=== PATIENT | female | born 2000 | race Caucasian/White ===

== ENCOUNTER 2019-05-31 06:29 | Emergency (ER) | payer BC ==
--- NOTE | 2019-05-31 07:09 | EDM.PDOC ---
ED HPI GENERAL MEDICAL PROBLEM - General Chief Complaint: Genitourinary Problem Stated Complaint: ABDOMINAL CRAMPING Time Seen by Provider: 05/31/19 07:07 - History of Present Illness INITIAL COMMENTS - FREE TEXT/NARRATIVE: 19-year-old female presents emergency room with blood in her urine. She also has some cramping with this. She woke up about 4:00 this morning with quite a bit of blood in her urine. She gets this on occasion she has a significant history of mast cell activation syndrome, and when this flares up she often gets UTI symptoms without an infection. When she has flares usually start herself on prednisone 40 mg daily for 4 days and she took 40 mg this morning when she noticed this. She wants to make sure she does not have a urinary tract infection. Patient has intermittent abdominal cramps and this is pretty normal for her has gastrointestinal symptoms predominantly with this condition. Yesterday the patient was on a diet holiday in this is probably what activated everything. Patient denies any fevers or chills she does not believe she is she is on control. Pelvic Pain Score (Numeric/FACES): 4 - Related Data Allergies Allergy/AdvReac Type Severity Reaction Status Date / Time Sulfa (Sulfonamide Allergy Rash Verified 05/31/19 06:37 Antibiotics) Home Meds: Home Meds Non-Formulary Medication [NF Drug] 1 dose PO DAILY 07/24/18 [History] predniSONE [Prednisone] 40 mg PO DAILY PRN 05/31/19 [History] Past Medical History Genitourinary History: Reports: UTI, Recurrent Musculoskeletal History: Reports: Other (See Below) Other Musculoskeletal History: tendinitis, joint hypermobility, Neurological History: Reports: Other (See Below) Other Neuro History: POTS - Past Surgical History HEENT Surgical History: Reports: Oral Surgery Musculoskeletal Surgical History: Reports: Other (See Below) Other Musculoskeletal Surgeries/Procedures:: scoliosis sx Social & Family History - Family History Family Medical History: Noncontributory - Tobacco Use Smoking Status *Q: Never Smoker - Caffeine Use Caffeine Use: Reports: None - Recreational Drug Use Recreational Drug Use: No ED ROS GENERAL - Review of Systems Review Of Systems: See Below Constitutional: Reports: No Symptoms HEENT: Reports: No Symptoms Respiratory: Reports: No Symptoms Cardiovascular: Reports: No Symptoms Endocrine: Reports: No Symptoms GI/Abdominal: Reports: Abdominal Pain, Diarrhea. Denies: Nausea, Vomiting : Reports: Frequency, Other (Hematuria) Skin: Reports: No Symptoms (She is prone to skin symptoms) Neurological: Reports: No Symptoms ED EXAM, GI/ABD - Physical Exam Exam: See Below Exam Limited By: No Limitations General Appearance: Alert, No Apparent Distress Eyes: Bilateral: Normal Appearance Head: Atraumatic, Normocephalic Neck: Normal Inspection, Supple, Non-Tender, Full Range of Motion Respiratory/Chest: No Respiratory Distress, Lungs Clear, Normal Breath Sounds Cardiovascular: Regular Rate, Rhythm, No Edema, No Murmur GI/Abdominal Exam: Normal Bowel Sounds, Soft, Other (He has minimal lower abdominal discomfort with palpation no rigidity rebound or guarding noted) Back Exam: No: CVA Tenderness (L), CVA Tenderness (R) Course - Vital Signs Last Recorded V/S: Last Vital Signs Temp 36.3 C 05/31/19 06:34 Pulse 108 H 05/31/19 06:34 Resp 18 05/31/19 06:34 BP 133/86 05/31/19 06:34 Pulse Ox 100 05/31/19 06:34 - Orders/Labs/Meds Orders: Active Orders 24 hr Category Date Time Status UA W/MICROSCOPIC [URIN] Stat Lab 05/31/19 07:22 Results Labs: Laboratory Tests 05/31/19 05/31/19 Range/Units 07:22 07:28 Urine Color [place] H (Yellow) Urine Appearance Slt cloudy H (Clear) Urine pH 6.0 (5.0-8.0) Ur Specific [place] 1.010 (1.005-1.030) Urine Protein 2+ H (Negative) Urine Glucose (UA) Negative (Negative) Urine Ketones Negative (Negative) Urine Occult Blood 3+ H (Negative) Urine Nitrite Negative (Negative) Urine Bilirubin Negative (Negative) Urine Urobilinogen 0.2 (0.2-1.0) Ur Leukocyte Esterase 2+ H (Negative) Urine HCG, Qual Negative (NEGATIVE) - Re-Assessments/Exams Free Text/Narrative Re-Assessment/Exam: 05/31/19 07:32 The patient's main concern is to be sure she doesn't have a urinary tract infection. I had a long discussion with her she really does not want laboratory evaluation done at this time other than a UA. 05/31/19 08:01 Patient is fairly insistent on going at this time she has another appointment to make. Urinalysis has 2+ leukocyte esterase but large amount of red cells microscopically still pending we will set up a culture and sensitivity as to what this looks like. Patient's been started on antibiotics multiple times and and as it turned out didn't really have urinary tract infection. So she like to hold off on antibiotics at this point Departure - Departure Time of Disposition: 08:02 Disposition: Home, Self-Care 01 Clinical Impression: Dysuria - Discharge Information Referrals: Corin Fung MD [Primary Care Provider] - Forms: ED Department Discharge Additional Instructions: Return to the emergency room with any questions problems worsening symptoms. We will await your urine culture and sensitivity before starting antibiotics - My Orders Last 24 Hours: My Active Orders 05/31/19 07:22 UA W/MICROSCOPIC [URIN] Stat - Assessment/Plan Last 24 Hours: My Active Orders 05/31/19 07:22 UA W/MICROSCOPIC [URIN] Stat
== END 2019-05-31 08:00 | disposition home or self-care (01) ==
LOC: JD.ED 06:29
DX: R30.0 Dysuria (principal); Z88.2 Allergy status to sulfonamides
CPT/HCPCS: 81001; 81025; 87086; 87088; 99281; 99284

== ENCOUNTER 2020-02-01 18:03 | Emergency (ER) | payer BC ==
[2020-02-01] MEDS ORDERED: Sodium Chloride 0.9% 10 ML Syringe FLUSH PRN ×2 (18:27→18:42)
[2020-02-01] MEDS ORDERED: Iopamidol 755 Mg/ML 100 ML Bottle IVPUSH ONE (18:42)
[2020-02-01] MEDS ORDERED: Sodium Chloride 0.9% 45 ML IV SCH (18:45)
[2020-02-01] MEDS ORDERED: Sodium Chloride 0.9% 1,000 ML IV SCH (18:45)
--- NOTE | 2020-02-01 19:03 | EDM.PDOC ---
ED HPI GENERAL MEDICAL PROBLEM - General Chief Complaint: Upper Extremity Injury/Pain Stated Complaint: R ARM PAIN Time Seen by Provider: 02/01/20 18:22 Source of Information: Reports: Patient History Limitations: Reports: No Limitations - History of Present Illness INITIAL COMMENTS - FREE TEXT/NARRATIVE: Patient is a 19-year-old female who presents to the emergency department with complaints of right medial forearm pain and swelling over the last few days. She also states she has had intermittent shortness of breath and a shooting pain in her right breast which seems to be worsening over the last 2 days. She does have asthma and has been attributing her shortness of breath to the asthma. She also has a history of mast cell activation syndrome as well as antiphospholipid syndrome. She has been receiving infusions of Benadryl, Pepcid, and normal saline for her mast cell activation syndrome with IV being placed in the antecubital of her right arm. She denies a history of blood clots and states that the clotting disorder was caught incidentally when she was having a work-up for her mast cell activation syndrome. She is currently taking Eliquis and Plavix to treat her hypercoagulable state as well as oral control pills for her endometriosis. Right Arm Pain Score (Numeric/FACES): 7 - Related Data Allergies Allergy/AdvReac Type Severity Reaction Status Date / Time alcohol Allergy Anaphylactic Verified 02/01/20 18:15 Shock D and C blue no.1 Allergy Hives Verified 02/01/20 18:15 D and C green no.5 Allergy Hives Verified 02/01/20 18:15 D and C orange no.4 Allergy Hives Verified 02/01/20 18:15 D and C red no.22 Allergy Hives Verified 02/01/20 18:15 D and C yellow no.10 Allergy Hives Verified 02/01/20 18:15 Sulfa (Sulfonamide Allergy Rash Verified 05/31/19 06:37 Antibiotics) Home Meds: Home Meds Non-Formulary Medication [NF Drug] 1 dose PO DAILY 07/24/18 [History] predniSONE [Prednisone] 40 mg PO DAILY PRN 05/31/19 [History] Past Medical History Respiratory History: Reports: Asthma Genitourinary History: Reports: UTI, Recurrent Musculoskeletal History: Reports: Other (See Below) Other Musculoskeletal History: tendinitis, joint hypermobility, Neurological History: Reports: Other (See Below) Other Neuro History: POTS - Past Surgical History HEENT Surgical History: Reports: Oral Surgery Musculoskeletal Surgical History: Reports: Other (See Below) Other Musculoskeletal Surgeries/Procedures:: scoliosis sx, spinal fusion Social & Family History - Family History Family Medical History: Noncontributory - Tobacco Use Smoking Status *Q: Never Smoker Second Hand Smoke Exposure: No - Caffeine Use Caffeine Use: Reports: None - Recreational Drug Use Recreational Drug Use: No Review of Systems - Review of Systems Review Of Systems: Comprehensive ROS is negative, except as noted in HPI. ED EXAM, GENERAL - Physical Exam Exam: See Below Exam Limited By: No Limitations General Appearance: Alert, WD/WN, No Apparent Distress Respiratory/Chest: No Respiratory Distress, Lungs Clear, Normal Breath Sounds, No Accessory Muscle Use, Chest Non-Tender Cardiovascular: Normal Peripheral Pulses, Regular Rate, Rhythm, No Edema, No Gallop, No JVD, No Murmur, No Rub Extremities: Normal Inspection, Normal Range of Motion, Non-Tender, No Pedal Edema, Normal Capillary Refill, Other (no redness, warmth, or edema present to right forearm) Neurological: Alert, Oriented, CN II-XII Intact, Normal Cognition, Normal Gait, Normal Reflexes, No Motor/Sensory Deficits Psychiatric: Normal Affect, Normal Mood Skin Exam: Warm, Dry, Intact, Normal Color, No Rash Course - Vital Signs Last Recorded V/S: Last Vital Signs Temp 98.4 F 02/01/20 18:10 Pulse 114 H 02/01/20 18:10 Resp 16 02/01/20 18:10 BP 113/85 02/01/20 18:10 Pulse Ox 100 02/01/20 18:10 - Orders/Labs/Meds Orders: Active Orders 24 hr Category Date Time Status Peripheral IV Care [RC] . DIRECTED Care 02/01/20 18:30 Active Peripheral IV Insertion Adult [OM.PC] Stat Oth 02/01/20 18:26 Ordered Labs: Laboratory Tests 02/01/20 02/01/20 02/01/20 Range/Units 18:40 18:40 18:40 WBC 5.97 (3.98-10.04) K/mm3 RBC 4.86 (3.98-5.22) M/mm3 Hgb 14.3 (11.2-15.7) gm/dl Hct 43.0 (34.1-44.9) % MCV 88.5 (79.4-94.8) fl MCH 29.4 (25.6-32.2) pg MCHC 33.3 (32.2-35.5) g/dl RDW Std Deviation 40.4 (36.4-46.3) fL Plt Count 224 (182-369) K/mm3 MPV 11.5 (9.4-12.3) fl Neut % (Auto) 47.9 (34.0-71.1) % Lymph % (Auto) 40.2 (19.3-51.7) % [place] % (Auto) 10.2 (4.7-12.5) % Eos % (Auto) 1.2 (0.7-5.8) Baso % (Auto) 0.3 (0.1-1.2) % Neut # (Auto) 2.86 (1.56-6.13) K/mm3 Lymph # (Auto) 2.40 (1.18-3.74) K/mm3 [place] # (Auto) 0.61 H (0.24-0.36) K/mm3 Eos # (Auto) 0.07 (0.04-0.36) K/mm3 Baso # (Auto) 0.02 (0.01-0.08) K/mm3 D-Dimer, Quantitative 0.46 (0.19-0.50) mg/L Sodium 142 (136-145) mEq/L Potassium 3.3 L (3.5-5.1) mEq/L Chloride 105 (98-107) mEq/L Carbon Dioxide 26 (21-32) mEq/L Anion Gap 14.3 (5-15) BUN 7 (7-18) mg/dL Creatinine 0.9 (0.55-1.02) mg/dL Est Cr Clr Drug Dosing 72.83 mL/min Estimated GFR (MDRD) > 60 (>60) mL/min BUN/Creatinine Ratio 7.8 L (14-18) Glucose 88 (74-106) mg/dL Calcium 9.0 (8.5-10.1) mg/dL Total Bilirubin 0.5 (0.2-1.0) mg/dL AST 12 L (15-37) U/L ALT 15 (14-59) U/L Alkaline Phosphatase 81 (46-116) U/L Total Protein 7.6 (6.4-8.2) g/dl Albumin 4.2 (3.4-5.0) g/dl Globulin 3.4 gm/dL Albumin/Globulin Ratio 1.2 (1-2) Meds: Medications Discontinued Medications Generic Name Dose Route Start Last Admin Trade Name Freq PRN Reason Stop Dose Admin Sodium Chloride 1,000 mls @ 150 mls/hr 02/01/20 18:45 02/01/20 19:35 Normal Saline IV 150 mls/hr ASDIRECTED MAUREEN Administration Sodium Chloride 45 mls @ 40 mls/hr 02/01/20 18:45 Normal Saline IV ASDIRECTED MAUREEN Iopamidol 100 ml 02/01/20 18:42 02/01/20 19:51 Isovue-370 (76%) IVPUSH 02/01/20 18:43 100 ml ONETIME ONE Administration Sodium Chloride 10 ml 02/01/20 18:27 02/01/20 19:36 Saline Flush FLUSH 10 ml ASDIRECTED PRN Administration Keep Vein Open Sodium Chloride 10 ml 02/01/20 18:42 02/01/20 19:51 Saline Flush FLUSH 10 ml ONETIME PRN Administration Keep Vein Open - Re-Assessments/Exams Free Text/Narrative Re-Assessment/Exam: Given patient's history of antiphospholipid syndrome and mast cell activation syndrome, we will rule out blood clots in her lungs and her arm. She is on Eliquis and Plavix, therefore this is highly unlikely. The pain in her forearm may also be related to the infusion of IV fluids, Benadryl, and Pepcid that she received on Friday last week. 02/01/20 20:24 Blood work was found to be grossly unremarkable with the exception of a potassium slightly low at 3.3. D-dimer was negative. Ultrasound of the right arm was negative for any DVTs. CT angiogram was negative for PE. Patient received her IV infusion on Friday of last week and states symptoms began Friday or Friday. Feel is likely that this is the cause of the pain in her forearm. Recommend that she use the left arm for the next infusion to give the veins rest. There is no redness, warmth, or edema at this time to indicate the presence of any infection. Discharge instructions as documented. Departure - Departure Time of Disposition: 20:25 Disposition: Home, Self-Care 01 Condition: Good Clinical Impression: Arm pain, right - Discharge Information *PRESCRIPTION DRUG MONITORING PROGRAM REVIEWED*: No *COPY OF PRESCRIPTION DRUG MONITORING REPORT IN PATIENT SHEEBA: No Referrals: Corin Fung MD [Primary Care Provider] - Forms: ED Department Discharge Additional Instructions: You were seen in the emergency department today for right forearm pain and intermittent swelling. Your work-up included blood work, and ultrasound of your right arm, and a CT angiogram of your chest. Your work-up was found to be normal, with the exception of your potassium being slightly low. Recommend that you increase your intake of potassium rich foods. As we discussed, the pain in your right arm is likely related to the infusion you received on Friday of last week. Recommend that you rest of this extremity for your next infusion. You may continue to ice the area as needed. If you should experience any new or worsening symptoms of concern, please not hesitate to return to the emergency de partment. Sepsis Event Note (ED) - Evaluation Sepsis Screening Result: No Definite Risk - Focused Exam Vital Signs: Vital Signs Temp Pulse Resp BP Pulse Ox 02/01/20 18:10 98.4 F 114 H 16 113/85 100 - My Orders Last 24 Hours: My Active Orders 02/01/20 18:26 Peripheral IV Insertion Adult [OM.PC] Stat 02/01/20 18:30 Peripheral IV Care [RC] . DIRECTED - Assessment/Plan Last 24 Hours: My Active Orders 02/01/20 18:26 Peripheral IV Insertion Adult [OM.PC] Stat 02/01/20 18:30 Peripheral IV Care [RC] . DIRECTED
--- NOTE | 2020-02-01 19:56 | US ---
Right upper extremity venous ultrasound: Duplex and color Doppler evaluation was obtained of the right internal jugular, subclavian, axillary, brachial, basilic, cephalic, radial and ulnar veins. Findings: Normal compression is noted. Phasic flow is noted within the internal jugular through basilic vein. Radial and ulnar veins are not well seen for phasic flow due to their small size. Impression: 1. No evidence of venous thrombosis within the right upper extremity. Diagnostic code #1 Study was dictated in MDT
--- NOTE | 2020-02-01 20:21 | CT ---
CT chest Technique: Multiple axial sections through the chest were obtained. Study performed as a pulmonary angiogram protocol and intravenous contrast was therefore utilized. Findings: Excellent opacification of the pulmonary arteries is seen. No filling defects are seen to indicate pulmonary embolism. Mediastinum and hilar regions show no adenopathy. Aorta shows no aneurysm. Lungs are clear with no acute parenchymal change. No pleural effusions are seen. Scoliosis is noted within the spine with no acute osseous finding being seen. Impression: 1. Scoliosis. 2. No findings of pulmonary embolism. 3. Nothing acute is appreciated on CT study of the chest. Diagnostic code #2 Study was dictated in MDT
== END 2020-02-01 20:34 | disposition home or self-care (01) ==
LOC: JD.ED 18:03
DX: M79.631 Pain in right forearm (principal); J45.909 Unspecified asthma, uncomplicated; Z79.01 Long term (current) use of anticoagulants; Z79.02 Long term (current) use of antithrombotics/antiplatelets; Z91.09 Other allergy status, other than to drugs and biological substances; Z88.2 Allergy status to sulfonamides
CPT/HCPCS: 36415; 71275; 80053; 85025; 85379; 93971; 99285; J7030; Q9967; 99283

== ENCOUNTER 2020-03-01 11:39 | Emergency (ER) | payer BC ==
[2020-03-01] MEDS ORDERED: Sodium Chloride 0.9% 10 ML Syringe FLUSH PRN (12:14)
[2020-03-01] MEDS ORDERED: methylPREDNISolone Sodium Succinate 125 MG/2 ML SDV IVPUSH ONE (12:14)
[2020-03-01] MEDS ORDERED: Famotidine 20 MG/2 ML SDV IVPUSH ONE (12:14)
[2020-03-01] MEDS ORDERED: Albuterol/Ipratropium 3.0-0.5 MG/3 ML Neb Soln NEB ONE (15:21)
--- NOTE | 2020-03-01 15:41 | EDM.PDOC ---
ED HPI GENERAL MEDICAL PROBLEM - General Chief Complaint: General Stated Complaint: ALLERGIC REACTION Time Seen by Provider: 03/01/20 11:58 Source of Information: Reports: Patient History Limitations: Reports: No Limitations - History of Present Illness INITIAL COMMENTS - FREE TEXT/NARRATIVE: The patient presents with an allergic reaction. She has a history of allergic reactions. She sees a specialist in [place]. She gets many allergic reactions a year. She will have hematuria from them and shortness of breath. She started having one last week. She was seen at the clinic and given benadryl, pepcid IV and put on oral prednisone. She thinks the benadryl made it worse. She has no fever, chills or cough. She has no abdominal pain, nausea or vomiting. Onset: Gradual Duration: Day(s): Severity: Moderate Improves with: Reports: None Worsens with: Reports: None Associated Symptoms: Reports: No Other Symptoms - Related Data Allergies Allergy/AdvReac Type Severity Reaction Status Date / Time alcohol Allergy Severe Anaphylactic Verified 03/01/20 12:24 Shock D and C blue no.1 Allergy Severe Hives Verified 03/01/20 12:24 D and C green no.5 Allergy Severe Hives Verified 03/01/20 12:24 D and C orange no.4 Allergy Severe Hives Verified 03/01/20 11:50 D and C red no.22 Allergy Severe Hives Verified 03/01/20 11:50 D and C yellow no.10 Allergy Severe Hives Verified 03/01/20 11:50 Dairy Products Allergy Severe Abdominal Verified 03/01/20 12:24 Pain mannitol Allergy Severe Tachycardia Verified 03/01/20 11:50 Sulfa (Sulfonamide Allergy Severe Rash Verified 03/01/20 11:50 Antibiotics) Home Meds: Home Meds Non-Formulary Medication [NF Drug] 1 dose PO DAILY 07/24/18 [History] predniSONE [Prednisone] 40 mg PO DAILY PRN 05/31/19 [History] Albuterol Sulfate 2.5 mg IH Q6H PRN #25 ml 03/01/20 [Rx] Apixaban [Eliquis] 03/01/20 [History] Clopidogrel Bisulfate [Clopidogrel] 03/01/20 [History] Cromolyn Sodium 03/01/20 [History] Famotidine [Pepcid AC] 20 mg PO 03/01/20 [History] Fexofenadine [Meghan] 03/01/20 [History] Hydroxychloroquine Sulfate 03/01/20 [History] Levonorgestrel/Ethin.estradiol [Larissia-28 Tablet] 03/01/20 [History] Ranitidine [Zantac] 03/01/20 [History] Spironolactone 03/01/20 [History] Past Medical History Respiratory History: Reports: Asthma Genitourinary History: Reports: UTI, Recurrent Musculoskeletal History: Reports: Other (See Below) Other Musculoskeletal History: tendinitis, joint hypermobility, Neurological History: Reports: Other (See Below) Other Neuro History: POTS - Past Surgical History HEENT Surgical History: Reports: Oral Surgery Musculoskeletal Surgical History: Reports: Other (See Below) Other Musculoskeletal Surgeries/Procedures:: scoliosis sx, spinal fusion Social & Family History - Family History Family Medical History: Noncontributory - Tobacco Use Smoking Status *Q: Never Smoker - Caffeine Use Caffeine Use: Reports: None - Recreational Drug Use Recreational Drug Use: No ED ROS GENERAL - Review of Systems Review Of Systems: See Below Constitutional: Reports: No Symptoms HEENT: Reports: No Symptoms Respiratory: Reports: No Symptoms Cardiovascular: Reports: No Symptoms Endocrine: Reports: No Symptoms GI/Abdominal: Reports: No Symptoms ED EXAM, GENERAL - Physical Exam Exam: See Below Exam Limited By: No Limitations General Appearance: Alert, No Apparent Distress Ears: Normal External Exam Nose: Normal Inspection Throat/Mouth: Normal Inspection Head: Atraumatic, Normocephalic Neck: Normal Inspection, Supple, Non-Tender Respiratory/Chest: No Respiratory Distress, Lungs Clear, Normal Breath Sounds Cardiovascular: Regular Rate, Rhythm, No Edema, No Murmur GI/Abdominal: Soft, Non-Tender, No Organomegaly, No Mass Course - Vital Signs Last Recorded V/S: Last Vital Signs Temp 97.9 F 03/01/20 11:53 Pulse 106 H 03/01/20 11:53 Resp 16 03/01/20 11:53 BP 122/91 H 03/01/20 11:53 Pulse Ox 100 03/01/20 15:21 - Orders/Labs/Meds Orders: Active Orders 24 hr Category Date Time Status Peripheral IV Care [RC] . DIRECTED Care 03/01/20 12:14 Active RT Aerosol Therapy [RC] ASDIRECTED Care 03/01/20 15:21 Active CULTURE URINE [RM] Stat Lab 03/01/20 12:15 Received Sodium Chloride 0.9% [Saline Flush] Med 03/01/20 12:14 Active 10 ml FLUSH ASDIRECTED PRN Peripheral IV Insertion Adult [OM.PC] Stat Oth 03/01/20 12:14 Ordered Medication Orders Sodium Chloride (Saline Flush) 10 ml FLUSH ASDIRECTED PRN PRN Reason: Keep Vein Open Last Admin: 03/01/20 12:30 Dose: 10 ml Documented by: MICHELLE Labs: Laboratory Tests 03/01/20 03/01/20 03/01/20 Range/Units 12:15 12:15 12:15 WBC 15.02 H (3.98-10.04) K/mm3 RBC 4.84 (3.98-5.22) M/mm3 Hgb 14.4 (11.2-15.7) gm/dl Hct 44.5 (34.1-44.9) % MCV 91.9 D (79.4-94.8) fl MCH 29.8 (25.6-32.2) pg MCHC 32.4 (32.2-35.5) g/dl RDW Std Deviation 44.2 (36.4-46.3) fL Plt Count 246 (182-369) K/mm3 MPV 12.2 (9.4-12.3) fl Neut % (Auto) 84.1 H (34.0-71.1) % Lymph % (Auto) 7.5 L (19.3-51.7) % [place] % (Auto) 8.1 (4.7-12.5) % Eos % (Auto) 0 L (0.7-5.8) Baso % (Auto) 0.1 (0.1-1.2) % Neut # (Auto) 12.64 H (1.56-6.13) K/mm3 Lymph # (Auto) 1.13 L (1.18-3.74) K/mm3 [place] # (Auto) 1.21 H (0.24-0.36) K/mm3 Eos # (Auto) 0.00 L (0.04-0.36) K/mm3 Baso # (Auto) 0.01 (0.01-0.08) K/mm3 Manual Slide Review Abnormal smear Sodium 141 (136-145) mEq/L Potassium 3.8 (3.5-5.1) mEq/L Chloride 104 (98-107) mEq/L Carbon Dioxide 27 (21-32) mEq/L Anion Gap 13.8 (5-15) BUN 10 (7-18) mg/dL Creatinine 0.9 (0.55-1.02) mg/dL Est Cr Clr Drug Dosing 69.97 mL/min Estimated GFR (MDRD) > 60 (>60) mL/min BUN/Creatinine Ratio 11.1 L (14-18) Glucose 98 (74-106) mg/dL Calcium 9.3 (8.5-10.1) mg/dL Total Bilirubin 0.6 (0.2-1.0) mg/dL AST 18 (15-37) U/L ALT 24 (14-59) U/L Alkaline Phosphatase 82 (46-116) U/L Total Protein 8.4 H (6.4-8.2) g/dl Albumin 4.7 (3.4-5.0) g/dl Globulin 3.7 gm/dL Albumin/Globulin Ratio 1.3 (1-2) Urine Color Yellow (Yellow) Urine Appearance Clear (Clear) Urine pH 6.0 (5.0-8.0) Ur Specific [employer] [place] > or = 1.030 (1.005-1.030) Urine Protein Trace H (Negative) Urine Glucose (UA) Negative (Negative) Urine Ketones Negative (Negative) Urine Occult Blood 2+ H (Negative) Urine Nitrite Positive H (Negative) Urine Bilirubin Negative (Negative) Urine Urobilinogen 0.2 (0.2-1.0) Ur Leukocyte Esterase Negative (Negative) Urine RBC 5-10 H (0-5) /hpf Urine WBC 5-10 H (0-5) /hpf Ur Epithelial Cells 5-10 H (0-5) /hpf Urine Bacteria Many H (FEW) /hpf Urine Mucus Moderate H (FEW) /hpf Meds: Medications Generic Name Dose Route Start Last Admin Trade Name Freq PRN Reason Stop Dose Admin Sodium Chloride 10 ml 03/01/20 12:14 03/01/20 12:30 Saline Flush FLUSH 10 ml ASDIRECTED PRN Administration Keep Vein Open Discontinued Medications Generic Name Dose Route Start Last Admin Trade Name Freq PRN Reason Stop Dose Admin Albuterol/Ipratropium 3 ml 03/01/20 15:21 03/01/20 15:29 Duoneb 3.0-0.5 Mg/3 Ml NEB 03/01/20 15:22 3 ml ONETIME ONE Administration Famotidine 20 mg 03/01/20 12:14 03/01/20 12:30 Pepcid IVPUSH 03/01/20 12:15 20 mg ONETIME ONE Administration Methylprednisolone Sodium Succinate 125 mg 03/01/20 12:14 03/01/20 12:30 Solu-Medrol IVPUSH 03/01/20 12:15 125 mg ONETIME ONE Administration - Re-Assessments/Exams Free Text/Narrative Re-Assessment/Exam: 03/01/20 15:42 Her WBC is elevated at 15.02 due to the prednisone. Her CMP looks good. Her UA shows blood, nitrites and some WBCs. This is consistently what is in her urine when she has a reaction. I did give her pepcid and solumedrol 60mg IV. That did help. She did have some throat tightness still. I gave her a duoneb treatment and that did help. I will write an ordered for the nebulizer. Departure - Departure Time of Disposition: 15:45 Disposition: Home, Self-Care 01 Condition: Good Clinical Impression: Reactive airway disease Qualifiers: Asthma severity: moderate Asthma persistence: persistent Asthma complication type: with acute exacerbation Qualified Code(s): J45.41 - Moderate persistent asthma with (acute) exacerbation Allergic reaction Qualifiers: Encounter type: subsequent encounter Qualified Code(s): T78.40XD - Allergy, unspecified, subsequent encounter - Discharge Information *PRESCRIPTION DRUG MONITORING PROGRAM REVIEWED*: Not Applicable *COPY OF PRESCRIPTION DRUG MONITORING REPORT IN PATIENT SHEE[facility]: Not Applicable Prescriptions: Albuterol Sulfate 2.5 mg IH Q6H PRN #25 ml PRN Reason: Shortness Of Breath Referrals: PCP,Not In Area [Primary Care Provider] - Additional Instructions: Take your medications as prescribed. Try the albuterol nebs every 6 hours as needed for shortness of breath. Try to call your doctor tomorrow. Please return if you are worse. Sepsis Event Note (ED) - Evaluation Sepsis Screening Result: No Definite Risk - Focused Exam Vital Signs: Vital Signs Temp Pulse Resp BP Pulse Ox Pulse Ox 03/01/20 15:21 100 03/01/20 11:53 97.9 F 106 H 16 122/91 H 98 - My Orders Last 24 Hours: My Active Orders 03/01/20 12:14 Peripheral IV Care [RC] . DIRECTED Sodium Chloride 0.9% [Saline Flush] 10 ml FLUSH ASDIRECTED PRN Peripheral IV Insertion Adult [OM.PC] Stat 03/01/20 12:15 CULTURE URINE [RM] Stat 03/01/20 15:21 RT Aerosol Therapy [RC] ASDIRECTED - Assessment/Plan Last 24 Hours: My Active Orders 03/01/20 12:14 Peripheral IV Care [RC] . DIRECTED Sodium Chloride 0.9% [Saline Flush] 10 ml FLUSH ASDIRECTED PRN Peripheral IV Insertion Adult [OM.PC] Stat 03/01/20 12:15 CULTURE URINE [RM] Stat 03/01/20 15:21 RT Aerosol Therapy [RC] ASDIRECTED
== END 2020-03-01 16:25 | disposition home or self-care (01) ==
LOC: JD.ED 11:39
DX: J45.41 Moderate persistent asthma with (acute) exacerbation (principal); T78.40XA Allergy, unspecified, initial encounter; Z88.2 Allergy status to sulfonamides; Z88.8 Allergy status to other drugs, medicaments and biological substances; Z79.01 Long term (current) use of anticoagulants; Z79.02 Long term (current) use of antithrombotics/antiplatelets; Z79.899 Other long term (current) drug therapy; Z91.011 Allergy to milk products
CPT/HCPCS: 36415; 80053; 81001; 85025; 87086; 87088; 87186; 94640; 96374; 96375; 99285; J2930; J3490; 99283; J7620-GY